=== PATIENT | female | born 1945 | race Caucasian/White ===

== ENCOUNTER 2017-07-11 17:04 | Emergency (ER) | payer MEDICARE, BC ==
[~2017-07-11] VITALS: Ht 152.4 cm; Wt 106.0 kg
[~2017-07-11 17:04] MED LIST: 1-ME1LIQ PO; ALEN70TA39 PO; ASPI81 PO; CALC600T34 PO; CHRO1TAB2 PO; FISHOIL XX; GLUC500C3 OR; MAGN250T13 PO; MECL25CH PO; TAB-TAB PO; VITA100017 PO; [UNRECOGNIZED DRUG - CODE] OR
[2017-07-11 17:12] VITALS: BP 119/56; PULSE 86; RESP 16; TEMP 97.7; O2SAT 93
[2017-07-11] MEDS ORDERED: CLON0.5T PO (17:33)
[2017-07-11] MEDS ORDERED: PROB500T8 PO (17:33)
[2017-07-11] MEDS ORDERED: VITA100064 PO (17:33)
[2017-07-11] MEDS ORDERED: ONDA4TAB7 SL (17:33)
[2017-07-11] MEDS ORDERED: AMLO5TAB2 PO (17:33)
[2017-07-11] MEDS ORDERED: ATOR10TA15 PO (17:33)
[2017-07-11] MEDS ORDERED: METO25TA3 PO (17:33)
[2017-07-11] MEDS ORDERED: AMLODIPINE BENAZEP PO (17:33)
[2017-07-11] MEDS ORDERED: NITR0.4S SL (17:33)
[2017-07-11] MEDS ORDERED: MECL-62 PO (17:33)
[2017-07-11] MEDS ORDERED: ASPI81CH7 CHEW (17:33)
[2017-07-11] MEDS ORDERED: [UNRECOGNIZED DRUG - OTHER] PO (17:33)
[2017-07-11] MEDS ORDERED: BOSW5TAB PO (17:33)
[2017-07-11] MEDS ORDERED: SODIUM CHLORIDE 0.9% FLUSH 10 ML FLUSH IV FLUSH PRN (18:00)
[2017-07-11] MEDS ORDERED: SODIUM CHLORID 0.9% 500 ML INJ 500 ML IV ONE (18:00)
[2017-07-11] MEDS ORDERED: ONDANSETRON HCL 4 MG/2 ML VIAL IVP ONE (18:00)
--- NOTE | 2017-07-11 18:01 | PD ---
HPI Chief Complaint: GI Complaint Time Seen by Provider: 17:52 Travel History International Travel<30 days: No Contact w/Intl Traveler<30days: No Traveled to known affect area: No History of Present Illness HPI Patient is a 72-year-old female presents emergency department for evaluation of nausea vomiting diarrhea as well as a cough. Patient states that since April she has been diagnosed with pneumonia and bronchitis several times been on several different courses of antibiotics. She states her last chest x- ray was mid June. She states she went to urgent care for diagnosis of all these and has not followed up with a primary care physician after any the episodes. She went to an urgent care center a few days ago and was prescribed Augmentin without chest x-ray for probable return for pneumonia. She states since then she is been having some nausea vomiting and some diarrhea. Nonbloody nonbilious diarrhea. She denies any weakness dizziness blood in stool blood in the emesis. Denies any abdominal pain chest pain or shortness of breath. She does endorse wet cough. States her symptoms are moderate, for the past 3 days, gradually worsening, context as above. PFSH Past Medical History Cancer: No Cardiovascular Problems: Yes (htn on meds) High Cholesterol: Yes Diminished Hearing: No Diverticulitis: Yes Endocrine: No Gastrointestinal Disorders: No Genitourinary: No Hypertension: Yes Immune Disorder: No Implanted Vascular Access Dvce: No Musculoskeletal: Yes (R SHOULDER FX) Neurologic: Yes (MENIERES) Psychiatric: No Reproductive: No Respiratory: No Tetanus Vaccination: Unknown ?: Not Menopausal: Yes Past Surgical History Cholecystectomy: Yes Eye Surgery: Yes (BILAT. CATARACT REMOVAL AND LENS PLACEMENT) Tonsillectomy: Yes Social History Alcohol Use: Yes (SOCIALLY) Tobacco Use: No Substance Use: No Allergies-Medications (Allergen,Severity, Reaction): Coded Allergies: acetazolamide (Verified Allergy, Severe, 07/11/17) allopurinol (Verified Allergy, Severe, 07/11/17) Uncoded Allergies: ALL DIURECTICS (Allergy, Severe, 07/11/17) UNKNOWN WATER PILL (Allergy, Unknown, 07/11/17) .PT STATES SHE'S ALLERGIC TO A WATER PILL BUT UNSURE OF THE NAME Reported Meds & Prescriptions Reported Meds & Active Scripts Active Amoxicillin 875 Mg Tab 875 Mg PO BID 10 Days Flagyl (Metronidazole) 500 Mg Tab 500 Mg PO BID 14 Days Zofran (Ondansetron HCl) 4 Mg Tab 4 Mg PO Q6HR PRN 20 Days Reported Osteo Bi-Flex One A Day (Adqhjfkjz-Rwigbfbktig-[id number]) 1 Tab 2 Tab PO DAILY Nitrostat SL (Nitroglycerin) 0.4 Mg Subl 0.4 Mg SL DIRECTED PRN 1 tablet under the tongue as needed for chest pain. Repeat every 5 minutes for a total of 3 DOSES or call 911 if NO relief. Aspirin Children's (Aspirin) 81 Mg Chew 81 Mg CHEW DAILY Atorvastatin (Atorvastatin Calcium) 10 Mg Tab 10 Mg PO HS Metoprolol Tartrate 25 Mg Tab 12.5 Mg PO BID Vitamin D3 (Cholecalciferol) 1,000 Unit Tab 2,000 Units PO DAILY Probenecid 500 Mg Tab 500 Mg PO HS [Fexofedine] 180 Mg PO DAILY Meclizine (Meclizine HCl) 25 Mg Tab 25 Mg PO DIRECTED PRN Ondansetron Odt 4 Mg Tab 4 Mg SL Q6HR PRN Clonazepam 0.5 Mg Tab 0.5 Mg PO BID [Amlodipine Benazep] 5-10 Mg PO DAILY Amlodipine (Amlodipine Besylate) 5 Mg Tab 5 Mg PO DAILY Review of Systems Except as stated in HPI: all other systems reviewed are Neg Physical Exam Narrative GENERAL: Well-developed, morbidly obese female, exhibiting a wet cough but in no obvious distress. SKIN: Focused skin assessment warm/dry. HEAD: Atraumatic. Normocephalic. EYES: Pupils equal and round. No scleral icterus. No injection or drainage. ENT: No nasal bleeding or discharge. Mucous membranes pink and moist. NECK: Trachea midline. No JVD. CARDIOVASCULAR: Regular rate and rhythm. No murmur appreciated. RESPIRATORY: No accessory muscle use. Clear to auscultation. Breath sounds equal bilaterally. GASTROINTESTINAL: Abdomen soft, non-tender, nondistended. Hepatic and splenic margins not palpable. MUSCULOSKELETAL: No obvious deformities. No clubbing. No cyanosis. No edema. NEUROLOGICAL: Awake and alert. No obvious cranial nerve deficits. Motor grossly within normal limits. Normal speech. PSYCHIATRIC: Appropriate mood and affect; insight and judgment normal. Data Data Last Documented VS Vital Signs Date Time Temp Pulse Resp B/P (MAP) Pulse Ox O2 Delivery O2 Flow Rate FiO2 3/4/18 20:03 88 18 120/80 (93) 99 07/11/17 17:12 97.7 Orders Orders Basic Metabolic Panel (Bmp) (07/11/17 17:59) Complete Blood Count With Diff (07/11/17 17:59) Iv Access Insert/Monitor (07/11/17 17:59) Ecg Monitoring (07/11/17 17:59) Oximetry (07/11/17 17:59) Ondansetron Inj (Zofran Inj) (07/11/17 18:00) Sodium Chloride 0.9% Flush (Ns Flush) (07/11/17 18:00) Sodium Chlorid 0.9% 500 Ml Inj (Ns 500 M (07/11/17 18:00) C Diff Toxin Pcr (07/11/17 17:59) Chest, Single Ap (07/11/17 ) Ed Discharge Order (07/11/17 19:31) Labs Laboratory Tests Test 07/11/17 18:00 White Blood Count 4.0 TH/MM3 Red Blood Count 5.11 MIL/MM3 Hemoglobin 14.3 GM/DL Hematocrit 43.5 % Mean Corpuscular Volume 85.1 FL Mean Corpuscular Hemoglobin 28.0 PG Mean Corpuscular Hemoglobin Concent 32.9 % Red Cell Distribution Width 14.8 % Platelet Count 169 TH/MM3 Mean Platelet Volume 7.8 FL Neutrophils (%) (Auto) 51.9 % Lymphocytes (%) (Auto) 32.6 % Monocytes (%) (Auto) 14.8 % Eosinophils (%) (Auto) 0.3 % Basophils (%) (Auto) 0.4 % Neutrophils # (Auto) 2.1 TH/MM3 Lymphocytes # (Auto) 1.3 TH/MM3 Monocytes # (Auto) 0.6 TH/MM3 Eosinophils # (Auto) 0.0 TH/MM3 Basophils # (Auto) 0.0 TH/MM3 CBC Comment DIFF FINAL Differential Comment Blood Urea Nitrogen 17 MG/DL Creatinine 0.86 MG/DL Random Glucose 100 MG/DL Calcium Level 8.2 MG/DL Sodium Level 135 MEQ/L Potassium Level 3.9 MEQ/L Chloride Level 102 MEQ/L Carbon Dioxide Level 23.9 MEQ/L Anion Gap 9 MEQ/L Estimat Glomerular Filtration Rate 65 ML/MIN MDM Medical Decision Making Medical Screen Exam Complete: Yes Emergency Medical Condition: Yes Differential Diagnosis Pneumonia, URI, gastritis, gastroenteritis, C. difficile. Narrative Course Patient was room to the emergency department, vital signs within normal limits, she appears well and in no obvious distress. Ordered a C. difficile specimen to be sent but the patient has not been able to provide a stool sample while in the emergency department. Electrolytes within normal limits, CBC within normal limits. Patient was given some IV fluids as well as some Zofran IV and she is sleeping soundly on reassessment. Chest x-ray was obtained and showed Last 24 hours Impressions Chest X-Ray 07/11/17 0000 Signed Impressions: Service Date/Time: Tuesday, July 11, 2017 18:11 - CONCLUSION: Mild prominence of the interstitium and cardiomegaly. Isrrael Zapata MD I reviewed this chest x-ray personally I think is quite limited by the patient' s body habitus and this was discussed with her. She was urged to do her best to try and lose weight. I am not convinced the patient's symptoms are branch service representative of pneumonia at this time, still she was started on Augmentin and I recommended that she finish this prescription. She states she will not take the prescription because she thinks the clavulanic acid component is actually leading to her nausea and vomiting and prefer to take amoxicillin because this worked for her in the past. Think this is a reasonable substitute. I will start patient on empiric Flagyl, Zofran prescribed for her symptoms, push p.o. fluids and she was urged to follow-up with her primary care physician for consideration of further workup and discussed that she may need lung testing in the future at this time she is stable for discharge no further emergent workup is indicated at this time Diagnosis Primary Impression: Diarrhea Additional Impression: Nausea & vomiting Additional Instructions: Stop taking augmentin (amoxicillin/clavulanic acid), start taking augmentin. Take the ondansetron/Zofran as needed for nausea and vomiting. Take the Flagyl to prevent a certain type of infection that is known to cause diarrhea when you have been on antibiotics. Take all of your other medicines as prescribed. Call your primary care physician's office tomorrow to set up an appointment this week. Do not take any Imodium. Med/Other Pt SpecificInfo: Prescription(s) given Scripts Amoxicillin (Amoxicillin) 875 Mg Tab 875 MG PO BID for Infection for 10 Days, #20 TAB 0 Refills Prov: Hany Bar MD 07/11/17 Metronidazole (Flagyl) 500 Mg Tab 500 MG PO BID for Infection for 14 Days, #28 TAB 0 Refills Prov: Hany Bar MD 07/11/17 Ondansetron (Zofran) 4 Mg Tab 4 MG PO Q6HR Y for NAUSEA OR VOMITING for 20 Days, TAB 0 Refills Prov: Hany Bar MD 07/11/17 Disposition: 01 DISCHARGE HOME Condition: Stable Hany Bar MD Jul 11, 2017 18:01
[2017-07-11 18:29] LABS: AUTOMATED NEUTROPHIL # 2.1 TH/MM3 (1.8-7.7); BASOPHIL % 0.4 % (0.0-2.0); EOSINOPHIL % 0.3 % (0.0-4.0); HEMATOCRIT 43.5 % (35.0-46.0); HEMOGLOBIN 14.3 GM/DL (11.6-15.3); LYMPH % 32.6 % (9.0-44.0); LYMPHOCYTE # 1.3 TH/MM3 (1.0-4.8); MEAN CELL VOLUME 85.1 FL (80.0-100.0); MEAN CORPUSCULAR HGB CONC 32.9 % (32.0-36.0); MEAN PLATELET VOLUME 7.8 FL (7.0-11.0); MONO % 14.8 % (0.0-8.0); MONOCYTE # 0.6 TH/MM3 (0-0.9); NEUT % 51.9 % (16.0-70.0); PLATELET COUNT 169 TH/MM3 (150-450); RED BLOOD COUNT 5.11 MIL/MM3 (4.00-5.30); RED CELL DISTRIBUTION WIDTH 14.8 % (11.6-17.2)
--- NOTE | 2017-07-11 18:33 | RADRPT ---
EXAM DATE/TIME: 07/11/2017 18:11 [facility] COMPARISON: No previous studies available for comparison. INDICATIONS : Cough MEDICAL HISTORY : None. SURGICAL HISTORY : None. ENCOUNTER: Initial ACUITY: 2 days PAIN SCORE: 0/10 LOCATION: Bilateral chest FINDINGS: There is cardiomegaly without consolidation or effusion. Mild interstitial prominence. Degenerative c hanges of the spine. CONCLUSION: Mild prominence of the interstitium and cardiomegaly. Isrrael Zapata MD on July 11, 2017 at 18:30 Board Certified Radiologist. This report was verified electronically.
[2017-07-11 18:39] LABS: CALCIUM 8.2 MG/DL (8.5-10.1)
[2017-07-11 18:40] LABS: BICARBONATE 23.9 MEQ/L (21.0-32.0)
[2017-07-11 18:43] LABS: CREATININE 0.86 MG/DL (0.50-1.00)
[2017-07-11] MEDS ORDERED: ZOFR4TAB PO (19:19)
[2017-07-11] MEDS ORDERED: METR-1 PO (19:19)
[2017-07-11] MEDS ORDERED: AMOX875T PO (19:28)
[2017-07-11 20:03] VITALS: BP 120/80
== END 2017-07-11 20:05 | disposition home or self-care (01) ==
LOC: PHED 17:04
DX: R19.7 Diarrhea, unspecified (principal); R11.2 Nausea with vomiting, unspecified; I10 Essential (primary) hypertension; E78.00 Pure hypercholesterolemia, unspecified
CPT/HCPCS: 71045; 80048; 85025; 96361; 96374; 99284; J2405; J7040